=== PATIENT | female | born 1960 | race Native Hawaiian/Other Pacific Islander ===

== ENCOUNTER 2019-06-03 12:41 | Emergency (ER) | payer OTHER ==
[~2019-06-03] VITALS: Ht 160 cm; Wt 80.3 kg
[2019-06-03 12:49] VITALS: TEMP 97.9
[2019-06-03 13:37] LABS: PLATELET COUNT 133 K/uL (152-353)
[2019-06-03 13:45] LABS: POTASSIUM 3.8 mmol/L (3.6-5.2); SODIUM 139 mmol/L (136-145)
[2019-06-03] MEDS ORDERED: BUSPIRONE15 MG PO (13:56)
[2019-06-03] MEDS ORDERED: SERT100T PO (13:56)
[2019-06-03] MEDS ORDERED: QUET300T PO (13:57)
[2019-06-03] MEDS ORDERED: GLIP10TA55 PO (13:57)
[2019-06-03] MEDS ORDERED: TRESIBA FL200 UNIT/M SC (14:00)
[2019-06-03] MEDS ORDERED: CLONAZEP ODT2 MG PO (14:00)
[2019-06-03 14:01] LABS: PARTIAL THROMBOPLASTIN TIME 24.9 SECONDS (24.5-33.6)
[2019-06-03] MEDS ORDERED: ZOCOR5 MG PO (14:01)
[2019-06-03] MEDS ORDERED: LOSA50TA PO (14:02)
[2019-06-03] MEDS ORDERED: NEURONTIN800 MG PO (14:02)
[2019-06-03 16:30] VITALS: BP 147/50
== END 2019-06-03 16:52 | disposition home or self-care (01) ==
LOC: ED 12:41
PROVIDERS: Student in an Organized Health Care Education/Training Program
DX: R53.1 Weakness (principal); N39.0 Urinary tract infection, site not specified; E11.65 Type 2 diabetes mellitus with hyperglycemia; Z79.4 Long term (current) use of insulin
CPT/HCPCS: 36415; 80053; 81000; 82962; 83735; 84443; 84484; 85027; 85610; 85730; 87086; 87088; 93005; 99284